=== PATIENT | female | born 1950 | race Caucasian/White ===

== ENCOUNTER 2017-09-18 11:58 | Inpatient (IN) ==
[2017-09-18] MEDS ORDERED: Lidocaine PF 1% Inj 5 ML Syringe INFILTRATN ONE (12:00)
[2017-09-18] MEDS ORDERED: Glycopyrrolate Inj 1 MG/5 ML Syringe IV.PUSH ONE (12:00)
[2017-09-18] MEDS ORDERED: Neostigmine Inj 5 MG/5 ML Syringe IV.PUSH ONE (12:00)
[2017-09-18] MEDS ORDERED: Chlorhexidine Gluconate 2% 1 Pack (2 Cloths) TOPICAL SCH (13:15)
[2017-09-18] MEDS ORDERED: Metoprolol Tartrate 25 MG Tablet PO SCH (13:15)
[2017-09-18] MEDS ORDERED: Dextrose 5%/NaCl 0.9% Inj 1,000 ML IV.SIG SCH (13:15)
[2017-09-18] MEDS ORDERED: Sodium Chlor 0.9% Inj 500 ML IV.SIG SCH (14:00)
--- NOTE | 2017-09-18 15:55 | P.HPUP ---
The Pre-Admit History and Physical Examination regarding the above named patient was reviewed (including, but not limited to, vital signs, heart, lungs, co-morbid conditions), and upon re-examination it is noted that: the patient's condition has not significantly changed since the last examination.
[2017-09-18] MEDS ORDERED: Acetaminophen 325 MG Tablet PO PRN (17:50)
[2017-09-18] MEDS ORDERED: Potassium Chlor 40 mEq Premix 40 MEQ/100 ML PIGGYBACK IV.SIG PRN ×2 (17:50→17:52)
[2017-09-18] MEDS ORDERED: Naloxone Inj 0.4 MG/ML Vial IV.PUSH PRN (17:50)
[2017-09-18] MEDS ORDERED: Potassium Chlor 20 mEq Premix 20 MEQ/100 ML PIGGYBACK IV.SIG PRN ×2 (17:50→17:52)
[2017-09-18] MEDS ORDERED: Ketorolac Inj 30 MG/ML (IVP) Vial IV.PUSH PRN ×2 (17:50→17:52)
[2017-09-18] MEDS ORDERED: KCL 20 mEq/D5W/NaCl 0.9% Inj 1,000 ML IV.CONT SCH (18:00)
[2017-09-18] MEDS ORDERED: *morphine SULFATE 4 MG/ML PERIprocedure ONLY ONE (18:10)
[2017-09-18] MEDS ORDERED: *morphine SULFATE 10 MG/ML PERIprocedure ONLY ONE (18:17)
[2017-09-18] MEDS: KCL 20 mEq/D5W/NaCl 0.9% Inj 1,000 ML IV.CONT SCH (18:38)
[2017-09-18] MEDS: Morphine Inj 30 MG/30 ML PCA.VIAL PCA PRN (18:39)
[2017-09-18] MEDS ORDERED: Morphine Inj 4 MG/ML Vial ONE (18:59)
[2017-09-18] MEDS ORDERED: fentaNYL Citrate Inj 100 MCG/2 ML Ampul ONE (18:59)
[2017-09-19] MEDS: KCL 20 mEq/D5W/NaCl 0.9% Inj 1,000 ML IV.CONT SCH ×2 (03:37→22:15)
[2017-09-19 04:28] LABS: Baso % (Auto) 0.4 % (0.0-2.0); Eos % (Auto) 0.2 % (0.0-4.0); Hemoglobin 10.2 gm/dL (11.6-15.3); Lymph # (Auto) 0.8 th/mm3 (1.0-4.8); Lymph % (Auto) 14.3 % (9.0-44.0); Mean Corpuscular HGB Conc 32.8 % (32.0-36.0); Mean Corpuscular Hemoglobin 30.2 pg (27.0-34.0); Mean Platelet Volume 8.1 fL (7.0-11.0); Mono # (Auto) 0.3 th/mm3 (0.0-0.9); Neut # (Auto) 4.4 th/mm3 (1.8-7.7); Neut % (Auto) 79.1 % (16.0-70.0); Platelet Count 172 th/mm3 (150-450); Red Blood Count 3.37 mil/mm3 (4.00-5.30); Red Cell Distribution Width 13.3 % (11.6-17.2); White Blood Count 5.6 th/mm3 (4.0-11.0)
[2017-09-19 04:48] LABS: Calcium 7.7 mg/dL (8.5-10.1); Carbon Dioxide 28.1 meq/L (21.0-32.0); Potassium 4.7 meq/L (3.5-5.1)
[2017-09-19] MEDS: Morphine Inj 30 MG/30 ML PCA.VIAL PCA PRN ×2 (06:53→16:42)
[2017-09-19] MEDS ORDERED: Pantoprazole Inj 40 MG Vial IV.PUSH SCH (09:00)
[2017-09-19] MEDS: Pantoprazole Inj 40 MG Vial IV.PUSH SCH (09:56)
[2017-09-19] MEDS: Acetaminophen 325 MG Tablet PO PRN (20:45)
--- NOTE | 2017-09-19 21:29 | P.PNCS ---
Subjective Colorectal Surgery Post Op Day #: 1 Interval history: afebrile, VSS UO good Objective Result Diagrams: 09/19/17 04:00 09/19/17 04:00 Objective Remarks: PE alert Abd - soft, flat, wound dry Assessment and Plan - Plan Imp: stable post-op OOB decr IVF start PO
--- NOTE | 2017-09-19 22:01 | MP ---
cc: Taz Simpson MD, Andrew H MD DATE OF OPERATION: 09/18/2017 PREOPERATIVE DIAGNOSIS: Full-thickness rectal prolapse. PROCEDURE: Exploratory laparotomy with rectopexy. POSTOPERATIVE DIAGNOSIS: Full-thickness rectal prolapse. SURGEON: Taz Simpson MD DEPUTY PROSECUTING ATTORNEY: Tarik Owens MD DESCRIPTION OF PROCEDURE: The patient was placed in the supine position. After adequate general anesthesia, her abdomen was prepped with Betadine solution and draped in the usual sterile fashion. With Dr. Owens's assistance, the abdomen was opened through a midline incision, noting some adhesions to the previous midline incision. These were taken down sharply. Exploration revealed a very deep cul-de-sac with thickening of the rectum consistent with her prolapse. The proximal colon was palpated very carefully and felt to be pretty unremarkable with somewhat of a long sigmoid loop. The small bowel was run from ligament of Treitz down to ileocecal valve and felt to be normal. Liver and gallbladder were unremarkable. The stomach and duodenum were normal. The uterus and ovaries were surgically absent. The great vessels were of normal caliber and fairly soft. First, the sigmoid colon was mobilized medially by dividing along the white line of Toldt. The left ureter was identified and carefully preserved. Dissection then opened up the right retroperitoneal space and the bowel dissected off the presacral fascia down to the pelvic floor for full rectal mobilization. Anterior to the cul-de-sac was scored allowing further mobilization of the rectum in preparation for the rectopexy. Rectopexy sutures were then placed, two on each side of the rectum, securing it quite tightly to the presacral promontory with 0 Prolene sutures. At completion, there was no compromise of the lumen and the bowel did appear to be adequately pexed from further prolapse. The abdomen was then irrigated copiously with normal saline. Adequate hemostasis achieved at all sites. The midline incision was closed anatomically using a #1 PDS suture to reapproximate the midline fascia. The subcu tissue was irrigated copiously and the skin closed with a running subcuticular Vicryl suture. Wound area washed with normal saline and dried, sterile dressing of Telfa and gauze applied. The patient tolerated the procedure quite well and was brought to the recovery room in stable condition. Sponge and needle counts were correct at the end of the procedure. MD [facility] Good/ , 09:42 PM , 09:50 PM
[2017-09-20 04:22] LABS: Baso % (Auto) 0.5 % (0.0-2.0); Eos # (Auto) 0.1 th/mm3 (0.0-0.4); Eos % (Auto) 1.1 % (0.0-4.0); Hemoglobin 10.8 gm/dL (11.6-15.3); Lymph # (Auto) 1.5 th/mm3 (1.0-4.8); Lymph % (Auto) 21.3 % (9.0-44.0); Mean Corpuscular HGB Conc 32.6 % (32.0-36.0); Mean Corpuscular Hemoglobin 30.2 pg (27.0-34.0); Mean Corpuscular Volume 92.5 fL (80.0-100.0); Mean Platelet Volume 7.7 fL (7.0-11.0); Mono # (Auto) 0.5 th/mm3 (0.0-0.9); Mono % (Auto) 6.7 % (0.0-8.0); Neut # (Auto) 4.8 th/mm3 (1.8-7.7); Neut % (Auto) 70.4 % (16.0-70.0); Platelet Count 172 th/mm3 (150-450); Red Blood Count 3.57 mil/mm3 (4.00-5.30); Red Cell Distribution Width 13.4 % (11.6-17.2); White Blood Count 6.8 th/mm3 (4.0-11.0)
[2017-09-20 04:37] LABS: Calcium 7.7 mg/dL (8.5-10.1); Carbon Dioxide 27.7 meq/L (21.0-32.0); Potassium 4.1 meq/L (3.5-5.1)
[2017-09-20] MEDS: Morphine Inj 30 MG/30 ML PCA.VIAL PCA PRN (04:57)
[2017-09-20] MEDS: Pantoprazole Inj 40 MG Vial IV.PUSH SCH (09:26)
[2017-09-20] MEDS: Benzocaine/Menthol 15 MG/3.6 MG SF Lozenge BUCCAL PRN ×2 (12:18→18:32)
[2017-09-20] MEDS: Acetaminophen 325 MG Tablet PO PRN ×2 (15:29→23:36)
--- NOTE | 2017-09-20 18:04 | P.PNCS ---
Subjective Colorectal Surgery Post Op Day #: 2 Interval history: afebrile, VSS UO good +flatus Objective Result Diagrams: 09/20/17 04:06 09/20/17 04:06 Objective Remarks: PE alert Abd - soft, flat, wound dry Assessment and Plan - Plan Imp: OOB decr IVF start PO lax prn dc plans
[2017-09-20] MEDS: KCL 20 mEq/D5W/NaCl 0.9% Inj 1,000 ML IV.CONT SCH ×2 (23:49)
--- NOTE | 2017-09-21 08:43 | P.PNCS ---
Subjective Colorectal Surgery Post Op Day #: 3 Interval history: Tolerating FLD, wants more to eat. No BMs Objective Result Diagrams: 09/20/17 04:06 09/20/17 04:06 Objective Remarks: Abd: soft,wound clean. No redness Assessment and Plan - Plan POD#3 Advance diet D/C IVs Ambulate more in halls. Probable D/C tomorrow.
[2017-09-21] MEDS: Pantoprazole Inj 40 MG Vial IV.PUSH SCH (08:50)
[2017-09-21] MEDS: Benzocaine/Menthol 15 MG/3.6 MG SF Lozenge BUCCAL PRN (17:49)
[2017-09-22] MEDS: Pantoprazole Inj 40 MG Vial IV.PUSH SCH (08:13)
[2017-09-22] MEDS: Benzocaine/Menthol 15 MG/3.6 MG SF Lozenge BUCCAL PRN (08:18)
--- NOTE | 2017-09-22 09:13 | P.PNCS ---
Subjective Colorectal Surgery Post Op Day #: 4 Interval history: No N or V. Tolerating diet. Large amounts of flatus. No BMs Objective Result Diagrams: 09/20/17 04:06 09/20/17 04:06 Objective Remarks: Abd: soft,wound clean,no redness Assessment and Plan - Plan POD#4 D/C today Instructions given
[2017-09-24 17:54] VITALS: O2SAT 96
[2017-09-24 18:02] VITALS: BP 115/72; PULSE 95; TEMP 98.5
[2017-09-24 18:38] VITALS: RESP 17
--- NOTE | 2017-10-24 06:55 | MD ---
cc: Taz Simpson MD DATE OF DISCHARGE: 09/22/2017 ADMITTING DIAGNOSIS: Full-thickness rectal prolapse. PROCEDURES: On 09/18/2017, exploratory laparotomy with rectopexy. POSTOPERATIVE DIAGNOSIS: Full-thickness rectal prolapse. HISTORY OF PRESENT ILLNESS: Ms. Barr is a 66-year-old female who was in relatively good health, noticing increasing amounts of rectal prolapse over the last several weeks. The prolapse became more troublesome and painful. It was a little bit harder to reduce when it got swollen and it produced more mucus and discharge as well as some bleeding. The patient was evaluated and found to have no evidence of any malignancy or acute colitis. She was, therefore, admitted at this time for definitive repair of the prolapse. Please see the history and physical for more complete past medical and surgical history. PERTINENT PHYSICAL: Very pleasant older female in no acute distress. Abdomen was soft and flat, not really distended. Normal bowel sounds. No rebound or guarding. No masses. Anal inspection revealed somewhat patulous anal canal with full-thickness prolapse easily produced and reduced. Digital exam reveals very poor tone, but no masses or tenderness and no blood on the finger. HOSPITAL COURSE: After admission, the patient was taken to the operating room on 09/18/2017, at which point, she underwent an exploratory laparotomy and rectopexy. She did have a fairly deep cul-de-sac consistent with a rectal prolapse. She tolerated the procedure well. Postoperatively, she was stabilized in the progressive care unit. She did need some laxatives to get her bowels moving, but was able to tolerate a progressive diet. Bowel movements resumed and she was instructed to avoid straining. She was ambulating with minimal assistance and considered stable enough to be discharged on 09/22/2017. DISCHARGE INSTRUCTIONS: The patient was discharged eating a regular diet. She was to resume all her preop medications. The patient was encouraged to ambulate daily, avoiding any heavy lifting or straining. Laxatives or stool softeners would be taken as necessary to keep the bowels from getting too hard. The patient will be seen in the office in 1-2 weeks' time for routine followup. Any problems prior to that time, she was instructed to call for more urgent attention. MD [facility] Good/julio , 10:43 PM , 10:50 PM
== END 2017-09-22 10:08 | disposition home or self-care (01) ==
LOC: HSDI 11:58 → HCPC 19:45 → HCIS 09-20 18:36 → N07 09-21 16:27
PROVIDERS: ADMIT Colon & Rectal Surgery; ATTEND Colon & Rectal Surgery